=== PATIENT | female | born 1955 | race Caucasian/White ===

== ENCOUNTER → 2023-04-18 14:56 | Outpatient (REF) | payer MEDICARE, SELFPAY | LOC: HWRAD 14:56 | PROVIDERS: ATTENDING PHYSICIAN Physician Assistant Surgical; FAMILY PHYSICIAN Family Medicine | DX: R10.2 Pelvic and perineal pain (principal) | CPT/HCPCS: 72192 ==

== ENCOUNTER → 2023-04-30 14:22 | Outpatient (REF) | payer MEDICARE, SELFPAY | LOC: HWRAD 14:22 | PROVIDERS: ATTENDING PHYSICIAN Psychiatry & Neurology Neurology; FAMILY PHYSICIAN Family Medicine | DX: M54.16 Radiculopathy, lumbar region (principal); M25.552 Pain in left hip | CPT/HCPCS: 73502 ==

== ENCOUNTER → 2023-09-17 19:15 | Outpatient (REF) | payer MEDICARE, SELFPAY | LOC: WDC 19:15 | PROVIDERS: ATTENDING PHYSICIAN Family Medicine | DX: Z12.31 Encounter for screening mammogram for malignant neoplasm of breast (principal) | CPT/HCPCS: 77063; 77067 ==

== ENCOUNTER → 2023-10-13 14:03 | Outpatient (REF) | payer MEDICARE, SELFPAY | LOC: RAD 14:03 | PROVIDERS: ATTENDING PHYSICIAN Family Medicine | DX: Z86.718 Personal history of other venous thrombosis and embolism (principal); I83.892 Varicose veins of left lower extremity with other complications | CPT/HCPCS: 93971 ==

== ENCOUNTER → 2023-11-06 13:27 | Outpatient (REF) | payer MEDICARE, SELFPAY | LOC: RAD 13:27 | PROVIDERS: ATTENDING PHYSICIAN Family Medicine | DX: Z86.718 Personal history of other venous thrombosis and embolism (principal); I83.892 Varicose veins of left lower extremity with other complications | CPT/HCPCS: 93971 ==

== ENCOUNTER → 2023-11-13 10:40 | Outpatient (REF) | payer MEDICARE, SELFPAY ==
[2023-11-13 11:07] LABS: % Basophils 1.4 % (0-2); % Eosinophils 6.4 % (0-6); % Immature Granulocytes 0.2 % (0-0.5); % Lymphocytes 25.8 % (20.5-51.1); % Monocytes 17.8 % (1.7-9.3); % Neutrophils 48.4 % (42.2-75.2); Absolute Basophils 0.1 10^3/uL (0-0.2); Absolute Eosinophils 0.4 10^3/uL (0-0.7); Absolute Lymphocytes 1.5 10^3/uL (1.2-3.4); Absolute Monocytes 1.1 10^3/uL (0.1-0.6); Absolute Neutrophils 2.9 10^3/uL (1.4-6.5); Hematocrit 41.3 % (37.0-47.0); Hemoglobin 14.9 g/dL (12.0-16.0); Mean Corp Hgb Conc. 36.1 g/dL (33.0-37.0); Mean Corpuscular Hgb 34.6 pg (27.0-31.0); Mean Corpuscular Volume 95.8 fL (81.0-99.0); Mean Platelet Volume 9.8 fL (7.4-10.4); Nucleated Red Blood Cells % 0 %; Platelet Count 209 10^3/uL (130-400); Red Blood Cell Count 4.31 10^6/uL (4.20-5.40); Red Cell Dist. Width 14.2 % (11.5-14.5); White Blood Cell Count 5.9 10^3/uL (4.8-10.8)
[2023-11-13 11:20] LABS: INR 0.95; PT 12.7 Sec (11.4-14.6)
[2023-11-13 11:26] VITALS: BP 122/76; BP_SYST 76
[2023-11-13] MEDS: ATIVAN 0.25 MG IV (11:59)
== END ==
LOC: RADI 10:40
PROVIDERS: ATTENDING PHYSICIAN Internal Medicine Hematology & Oncology; FAMILY PHYSICIAN Family Medicine
DX: D68.51 Activated protein C resistance (principal)
CPT/HCPCS: 88305; 88311; 88312; 36415; 38222; 77012; 85025; 85610; 88313

== ENCOUNTER → 2023-12-24 10:41 | Outpatient (REF) | payer MEDICARE, SELFPAY | LOC: RAD 10:41 | PROVIDERS: ATTENDING PHYSICIAN Internal Medicine Hematology & Oncology; FAMILY PHYSICIAN Family Medicine | DX: D68.51 Activated protein C resistance (principal); Z86.73 Personal history of transient ischemic attack (TIA), and cerebral infarction without residual deficits; D68.4 Acquired coagulation factor deficiency; I82.90 Acute embolism and thrombosis of unspecified vein; Z86.2 Personal history of diseases of the blood and blood-forming organs and certain disorders involving the immune mechanism; D47.2 Monoclonal gammopathy | CPT/HCPCS: 77075 ==

== ENCOUNTER → 2024-06-08 08:02 | Outpatient (REF) | payer MEDICARE, SELFPAY | LOC: HWRAD 08:02 | PROVIDERS: ATTENDING PHYSICIAN Internal Medicine Rheumatology; FAMILY PHYSICIAN Family Medicine | DX: M81.0 Age-related osteoporosis without current pathological fracture (principal); Z13.820 Encounter for screening for osteoporosis | CPT/HCPCS: 77080 ==

== ENCOUNTER → 2024-09-29 16:28 | Outpatient (REF) | payer MEDICARE, SELFPAY | LOC: WDC 16:28 | PROVIDERS: ATTENDING PHYSICIAN Family Medicine | DX: Z12.31 Encounter for screening mammogram for malignant neoplasm of breast (principal) | CPT/HCPCS: 77063; 77067 ==